=== PATIENT | male | born 1975 | race Caucasian/White ===

== ENCOUNTER 2021-11-25 09:46 | Emergency (ER) | payer MEDICARE, SELFPAY ==
[2021-11-25] VITALS (8 sets, daily range): BP systolic 118–155; BP diastolic 78–104; PULSE 55–79; RESP 12–24; TEMP 36.6; O2SAT 97–100
--- NOTE | ~2021-11-25 | XR_ITS ---
EXAMINATION: XR chest 1V portable EXAM DATE: 11/25/2021 10:39 INDICATION: cough, generalized chest pain, congestion . TECHNIQUE: Portable AP frontal chest x-ray was obtained. There is no prior study for comparison. FINDINGS: The lungs are hyperinflated which can be seen with chronic obstructive pulmonary disease (a clinical diagnosis of functional impairment), but is not diagnostic of it. Right basilar calcified g ranuloma. The lungs are otherwise clear. Cardiomediastinal silhouette is normal. There is no pneumoth orax suspected. There are no pleural effusions. There are no osseous abnormalities identified. IMPRESSION: Chronic appearing hyperinflation. Reviewed, dictated and finalized at location B. [employer]
--- NOTE | 2021-11-25 09:55 | ECG_ITS ---
Measurements Intervals [place] Rate: 54 P: 74 MA: 134 QRS: 76 QRSD: 106 T: 68 QT: 413 QTc: 393 Interpretive Statements SINUS BRADYCARDIA POSSIBLE LEFT VENTRICULAR HYPERTROPHY MINIMAL Q WAVES- INF/LAT LEADS BORDERLINE ECG Electronically Signed On 11-25-2021 10:11:32 HAND TUBE BENDER by Erickson Shen D.O.
[2021-11-25 10:06] LABS: Basophils Percent Auto 0.4 % (0.2-1.2); Eosinophils Absolute Auto 0.3 K/mm3 (0-0.3); Eosinophils Percent Auto 2.9 % (0-4.4); Hematocrit 48.2 % (42.0-52.0); Hemoglobin 16.3 g/dL (14.0-18.0); Immature Granulocyte Absolute 0.02 K/mm3 (0.00-0.031); Immature Granulocyte Percent A 0.2 % (0-0.5); Lymphocytes Absolute Auto 1.11 K/mm3 (0.9-3.2); Lymphocytes Percent Auto 11.3 % (18.3-44.2); Mean Corpuscular HGB Conc 33.8 g/dl (32-36); Mean Corpuscular Hemoglobin 31.8 pg (26-34); Mean Corpuscular Volume 94.1 fl (80-100); Mean Platelet Volume 9.9 fl (7.4-10.4); Monocytes Absolute Auto 0.7 K/mm3 (0.1-0.6); Monocytes Percent Auto 6.8 % (2.6-8.5); Neutrophils Absolute Auto 7.7 K/mm3 (1.3-6.7); Neutrophils Percent Auto 78.4 % (45.5-73.1); Platelet Count Result 239 k/mm3 (150-375); Red Blood Count 5.12 M/mm3 (4.6-6.20); Red Cell Distribution Width 12.8 % (11.5-14.5); White Blood Count 9.8 K/mm3 (4.5-10.0)
[2021-11-25 10:15] LABS: Prothrombin Time 12.8 Seconds (11.1-14.7)
[2021-11-25 10:16] LABS: Alanine Aminotransferase 29 U/L (4-50); Albumin Level 4.7 g/dL (3.5-5.1); Alkaline Phosphatase 75 U/L (38-126); Anion Gap 3 mmol/L (8-16); Aspartate Amino Transferase 32 U/L (17-59); Bilirubin,Total 0.6 mg/dL (0.2-1.3); Blood Urea Nitrogen 12 mg/dL (9-20); Calcium 9.1 mg/dL (8.4-10.2); Carbon Dioxide 30 mmol/L (22-30); Chloride 104 mmol/L (98-107); Estimated CRCL calculation 80 ml/min; Estimated Glomerular Filt Rate > 60; Glucose 134 mg/dL (65-110); Lipase 61 U/L (23-300); Partial Thromboplastin Time 27.8 SECONDS (22.3-36.8); Potassium 4.4 mmol/L (3.4-5.0); Sodium 137 mmol/L (137-145)
[2021-11-25 10:28] LABS: Troponin I 0.012 ng/mL (0.000-0.034)
[2021-11-25] MEDS: ASPIRIN 81 MG CHEWABLE TABLET 324 MG PO (10:55)
--- NOTE | 2021-11-25 11:26 | ED.GENADULT ---
HPI - General Adult General Chief complaint: Chest Pain Stated complaint: Chest Pain Time Seen by Provider: 11/25/21 10:00 Source: patient Mode of arrival: ambulatory Limitations: no limitations History of Present Illness HPI narrative: Patient presents for evaluation of respiratory symptoms and chest pain. He indicates he has had sinus congestion and drainage for the last 2 weeks. Drainage is mucopurulent and he has gone through five rolls of paper towels blowing his nose. Drainage then moved into his chest. He has had coughing episodes and cough is productive. Last night after a coughing episode he experienced some chest pain which radiated into the back. He cannot provide me with numerical rating the pain or duration of time in which his symptoms were present. He does state that he believes the chest pain was directly related to coughing. This morning he had an episode of right sided chest pain. He states his and daughter encouraged him to come in for evaluation. He denies any chest pain at the present time. He denies any fever, chills, nausea, vomiting, diarrhea, loss of sense of taste or smell.. He has never received COVID vaccinations. He states his has similar symptoms and had a COVID test today that was inconclusive. He states that there was a faint line to suggest it was positive. She is having confirmatory PCR test sent. He is a former smoker, quitting about seven months ago. He states that at times he feels as though he can only get a half breath . Related Data Allergies Allergy/AdvReac Type Severity Reaction Status Date / Time haloperidol [From Haldol] Allergy Unknown Verified 11/25/21 10:56 Penicillins Allergy Hives Verified 11/25/21 10:56 Review of Systems Review of Systems: CONSTITUTIONAL: Denies fever, chills, or sweats. EYES: Denies visual changes, redness, or discharge. ENT: Denies rhinorrhea, congestion, sore throat, or otalgia. CARDIOVASCULAR:Reports recent chest pain, none currently. Denies palpitations, or edema. RESPIRATORY: Reports productive cough and sensation that he can only take a half breath . GASTROINTESTINAL: Denies abdominal pain, nausea, vomiting, or diarrhea. GENITOURINARY: Denies dysuria or hematuria. SKIN: Denies rash or itching. MUSCULOSKELETAL: Denies back pain, joint pain, or myalgia. NEUROLOGIC: Denies headache, numbness, dizziness, or weakness. PSYCHIATRIC: Denies anxiety or depression. [facility] Past Medical History Medical History (Updated 11/25/21 @ 13:30 by GMOEZ Sandoval, ) No pertinent past medical history Surgical History Surgical History History of surgery on arm Family History Family History Mother Family history non-contributory Social History Social History Smoking status: Former smoker Substance use: current Substance use type: marijuana Living arrangements: with family Gender identity (if verbalized by the patient): Male Sexual Orientation (if Verbalized by the Patient): Straight or Heterosexual Spiritual care concerns: No Exam Narrative: GENERAL: Well-appearing, well-nourished, and in no acute distress. HEAD: Normocephalic, atraumatic. EYES: PERRLA and EOMI. ENT: Nares clear, no rhinorrhea or epistaxis. Mucous membranes moist. Oropharynx without tonsillar hypertrophy exudate or other lesions. Bilateral TMs pearly reynoso nonbulging NECK: Supple. No adenopathy or masses. No carotid bruits or JVD CHEST: Clear to auscultation. No respiratory distress. No wheezes rales or rhonchi HEART: Regular rate and rhythm. No murmur heard. Normal peripheral pulses. ABDOMEN: Soft, nontender, nondistended, normal active bowel sounds. EXTREMITIES: Normal range of motion. No edema. SKIN: Warm, dry, no rash. NEURO: No focal deficits. Alert and oriented x3.
[2021-11-25 12:26] LABS: SARS-CoV-2 RNA PCR Negative
[2021-11-25 13:17] LABS: Troponin I 0.012 ng/mL (0.000-0.034)
== END 2021-11-25 13:50 | disposition home or self-care (01) ==
PROVIDERS: Emergency Medicine; Emergency Provider Nurse Practitioner
DX: J32.9 Chronic sinusitis, unspecified (principal); B96.89 Other specified bacterial agents as the cause of diseases classified elsewhere; R05.9 Cough, unspecified; Z20.822 Contact with and (suspected) exposure to COVID-19; Z87.891 Personal history of nicotine dependence; R00.1 Bradycardia, unspecified; R94.31 Abnormal electrocardiogram [ECG] [EKG]
CPT/HCPCS: 36415; 71045; 80053; 83690; 84484; 85025; 85610; 85730; 93005; 99284; A9270; C9803; U0003; U0005